=== PATIENT | male | born 1975 | race Caucasian/White ===

== ENCOUNTER 2025-04-07 16:14 | Emergency (ER) | payer MEDICARE, MEDICAID, SELFPAY ==
[2025-04-07 16:17] VITALS: BP 126/78; PULSE 71; RESP 16; TEMP 36.3; O2SAT 96; BMI 35.3
[2025-04-07] MEDS: Diphth,Pertus(ACell),Tet Adult 0.5 ML SYRINGE IM (16:32)
--- NOTE | 2025-04-07 16:44 | ED.GENADULT ---
HPI - General Adult General Chief complaint: Wound/Laceration Stated complaint: L hand injury with saw Time Seen by Provider: 04/07/25 16:26 Source: patient Mode of arrival: ambulatory Limitations: no limitations History of Present Illness ED Provider: Veto Carias [facility] narrative: 50 yold male presents to the ED to the ED for laceratio non back of hand caused by cutting using table saw. patient denies any other truma. Bleeding is controlled. Related Data Allergies Allergy/AdvReac Type Severity Reaction Status Date / Time No Known Allergies Allergy Verified 04/07/25 16:20 Review of Systems Review of Systems: left hand laceration Yes all other systems are reviewed and are negative PMFSH Social History Social History Advance Directives: No Advance Directives Information Provided: No Do you have a plan to hurt others: No Plan Physical Exam ED Vital Signs: Vital Signs - 24 hr 04/07/25 16:17 04/07/25 16:56 Temperature 97.4 F 97.7 F Pulse Rate 71 79 Respiratory Rate 16 18 Blood Pressure 126/78 133/80 Pulse Oximetry 96 99 Oxygen Delivery Method Room Air Room Air BMI result Body Mass Index 35.3 Const General: cooperative, healthy appearing, comfortable, no acute distress, well developed, alert, awake and Physically active Orientation/consciousness: patient oriented x3 HENMT Head: Yes normal to inspection, Yes No palpable skull fracture present, Yes normocephalic, Yes atraumatic and No abrasion Eyes General: appearance normal, both eyes and all related structures Neck Neck: Yes normal visual inspection, Yes full ROM, Yes no lymphadenopathy, Yes no meningeal signs, Yes trachea midline, Yes supple, No anterior neck swelling and No tender Chest Chest palpation & inspection: normal inspection of the chest and normal palpation of entire chest wall Resp Effort & Inspection: normal respiratory effort and able to speak in complete sentences Cardio Jugular venous distension: no JVD Heart sounds: S1 normal heart sound present and S2 normal heart sound present GI Inspection: Yes normal to inspection Palpation (GI): Soft to palpation, not firm, nontender, no guarding and not rigid General: Yes no CVA tenderness Back/Spine/Pelvis Back: no CVA tenderness and No back tenderness Skin General skin exam: no rashes or lesions noted and elasticity normal Neuro General: patient oriented x3, gait normal, tone normal, moves all extremities, Normal light touch and pain sensation, no meningeal signs, no focal motor deficits, CN's II-XI intact bilaterally and normal sensation to monofilament Extrem General: Yes normal to inspection, Yes full ROM and Yes capillary refill normal Hand/finger images:  1. positive for superficial laceration/abrasion. no active bleeding. negative for signs of nerve/tendon injury. vascular/motor/neuro exam is intact. Psych Appearance: grossly normal, well kempt and not disheveled Medications Administered Discontinued Medications Generic Name Dose Route Start Last Admin Trade Name Freq PRN Reason Stop Dose Admin Diphtheria/Tetanus/Acell Pertussis 0.5 ml 04/07/25 16:26 04/07/25 16:32 Diphth,Pertus(Acell),Tet Adult 0.5 Ml Syringe IM 04/07/25 16:27 0.5 ml .ONCE ONE Administration Medical Decision Making Medical Decision Making [facility] Narrative: [age] year male presents to ED for left dorsal hand laceration caused by a table saw while trying to cut wood. Patient has unknown last tetanus shot. On exam small superficial laceration of patient's dorsal aspect of hand that does not require stitches. Negative for signs of tendon or nerve injury. Patient's complete range of motion. Motor/neuro/vascular exam intact. Wound cleaned with sterile saline and Betadine iodine. Dermabond glue placed. Steri-Strips placed. Patient explained worrisome signs and informed return to the ED immediately Differential Diagnosis Differential Diagnoses: The differential diagnosis associated with the presentation includes (Laceration) Admission/Observation Consideration of admission/observation: Escalation of care including admission/observation considered Independent Historian Clinical information obtained from an independent historian. History obtained from or confirmed by: Other (Patient) Prescription Management I considered prescription management with: Pain Medication Discharge Plan Discharge Clinical Impression: Laceration, Abrasion Patient Disposition: Home, Self-Care Instructions: Laceration (ED), Skin Adhesive Care (ED) Additional Instructions: Recommend follow up with primary care provider. Wound should be kept clean and dry at least the 1st 24 hours. Return to the ED immediately for any swelling, redness, pus discharge, foul odor, fever, chills, red streaks, or any other concerning symptoms. Stand Alone Forms: Work/School Release Interventions: ED Discharge Assessment Last Done: 04/07/25 16:56 Discharge Date/Time: 04/07/25 16:58 Print Language: Taiwanese
--- OUTSIDE RECORDS SUMMARY | 2025-04-07 16:47 | XMS_ITS | Clinical Summary ---
Author Organization [employer] Address [address] [facility] [address] [place] [address] Care Team Providers Care International First Officer Name Role Phone Unavailable Primary Care Provider Unavailabl e Encounters Date Type Department Care Team Description 03/24/2025 Telephone [facility] [address] [place] [address] Ambika Fine MD from Last 3 Months Social History Tobacco Use Types Packs/Day Years Used Date Smoking Tobacco: Never Assessed Sex and Gender Information Value Date Recorded Sex Assigned at Male 03/24/2025 3:02 PM EDT Legal Sex Male 10:29 AM EDT Gender Identity Male 03/24/2025 3:02 PM EDT Sexual Orientation Not on file Plan of Treatment Health Maintenance Due Date Last Done Comments CT Colonography 1977 Colonoscopy 1977 Colorectal Cancer Screening 1977 Depression Screening 1977 FIT DNA/Cologuard 1977 FIT 1977 FOBT 1977 HIV Screening 1977 Lipid Panel 1977 SDOH Screening 1977 Sigmoidoscopy 1977 Disability Screening 1977 Alcohol/Substance Use Screening 1989 Tobacco Screening 1989 Family Planning (PISQ) 01/19/1992 Hepatitis C Screening 1995 DTaP/Tdap/Td Vaccines (1 - Tdap) 01/19/1996 Hepatitis B Vaccines (1 of 3 - 19+ 3-dose series) 01/19/1996 COVID-19 Vaccine ( - 2023-2 5 season) 2024 Influenza Vaccine (#1) 2025 Zoster Vaccines (1 of 2) 2027 RSV Patients and Pa tients Aged 60 years or older (1 - 1-dose 75+ series) 01/19/2052 HIB Vaccines Aged Out No longer eligi ble based on patient's age to complete this topic HPV Vaccines Aged Out No longer eligi ble based on patient's age to complete this topic Hepatitis A Vaccines Aged Out No long er eligible based on patient's age to complete this topic IPV Vaccines Aged Out No longer eligi ble based on patient's age to complete this topic Meningococcal B Vaccine Aged Out No l onger eligible based on patient's age to complete this topic Meningococcal Vaccine Aged Out No stuart abby eligible based on patient's age to complete this topic Pneumococcal Vaccine: Pediat rics (0 to 5 Years) and At-Risk Patients (6 to 49) Years Aged Out No longer eligible b ased on patient's age to complete this topic RSV under 20 months Aged Out No longe r eligible based on patient's age to complete this topic Rotavirus Vaccines Aged Out No longer eligible based on patient's age to complete this topic Insurance [facility] STANDARD
[2025-04-07 16:56] VITALS: BP 133/80; PULSE 79; RESP 18; TEMP 36.5; O2SAT 99
== END 2025-04-07 16:58 | disposition home or self-care (01) ==
PROVIDERS: Emergency Provider Emergency Medicine Emergency Medical Services
DX: S61.412A Laceration without foreign body of left hand, initial encounter (principal); W31.2XXA Contact with powered woodworking and forming machines, initial encounter; M79.642 Pain in left hand; Y93.89 Activity, other specified; Y92.9 Unspecified place or not applicable; Y99.9 Unspecified external cause status; Z23 Encounter for immunization
CPT/HCPCS: 12001; 90471; 90715; 99282; 99284

== ENCOUNTER 2025-06-30 08:05 | Outpatient (REF) | payer MEDICARE, MEDICAID, SELFPAY ==
--- OUTSIDE RECORDS SUMMARY | 2025-06-29 14:00 | XMS_ITS | Encounter Summary ---
Author Organization [employer] Address [address] [facility] [address] [place] [id number] Care Team Providers Care Epic Director Name Role Phone Name, Lexx ASHRAF Primary Care Provider [phone] Reason for Visit * Reason Comments New patient visit Encounter Details Date Type Department Care Team (Late st Contact Info) Description 06/29/2025 2:00 PM EDT Office Visit [facility] [address] [place] [address] Name, MD Lexx [address] [place] [address] Chronic midline low back pain with sciatica, sciatica laterality unspecified (Primary Dx); History of lumbosacral spine surgery; Depression with anxiety; Vaccination refused by patient; Healthcare maintenance; Screening for diabetes mellitus (DM); Screening for cholesterol level; Encounter for screening for HIV; Need for hepatitis C screening test Social History Tobacco Use Types Packs/Day Years Used Date Smoking Tobacco: Never Passive Smoke Exposure: Never Smokeless Tobacco: Never Tobacco Cessation:Counseling Given: Not Answered Alcohol Use Standard Drinks/Week Comments Never 0 (1 standard drink = 0.6 oz pur e alcohol) Depression Answer Date Recorded Patient Health Questionnaire-9 Score 8 06/29/2025 Patient Health Questionnaire-9 Score 8 06/29/2025 Last PHQ-9: Questionnaire Data Not on file 1 Housing Stability Answer Date Recorded What is your housing situation today? I do not have housing (Staying with others, in a hotel, in a [place], living outside on the street, on a beach, in a car, or in a park 06/29/[address] you li ve. Do you have problems with any of the following? None of the above 06/29/2025 Food Insecurity Answer Date Recorded Within the past 12 months, y ou worried that your food would run out before you got money to buy more: Sometimes True 2024 Within the past 12 months,th e food you bought just didn't last and you didn't have enough money to get more: Sometimes True 06/29/2025 Transportation Answer Date Recorded In the past 12 months, has l ack of transportation kept you from medical appts, meetings, work or from getting things needed for daily living? No 06/29/2025 Utilities Answer Date Recorded In the past 12 months, has t he electric, gas, oil or water company threatened to shut off services in your home? No 06/29/2025 Depression Answer Date Recorded Patient Health Questionnaire-2 Score 2 06/29/2025 Internet Access Answer Date Recorded Internet Access Q1 Yes 06/29/2025 Internet Access Q2 Not on file 06/29/2025 Sex and Gender Information Value Date Recorded Sex Assigned at Male 03/24/2025 3:02 PM EDT Legal Sex Male 10:29 AM EDT Gender Identity Male 03/24/2025 3:02 PM EDT Sexual Orientation Straight 06/29/2025 1: 44 PM EDT documented as of this encounter Last Filed Vital Signs Vital Sign Reading Time Taken Comments Blood Pressure 122/60 06/29/2025 1:56 PM EDT Pulse 68 06/29/2025 1:56 PM EDT Temperature 36.7 C (98 F) 06/29/2025 1:56 PM EDT Respiratory Rate 16 06/29/2025 1:56 PM EDT Oxygen Saturation 96% 06/29/2025 1:56 PM EDT Inhaled Oxygen Concentration - - Weight 113 kg (250 lb) 06/29/2025 1:56 PM EDT Height 176 cm (5' 9.29 ) 06/29/2025 1:56 PM EDT Body Mass Index 36.61 06/29/2025 1:56 PM EDT documented in this encounter Functional Status * Over the past 2 weeks, how often have you been bothered by any of the following problems? Question Answer Date of Assessment Author Patient Health Questionnaire -2 Score 2 06/29/2025 2:50 PM EDT Mu Greenberg MA * Little interest or pleasure in doing things Answer Date of Assessment Author Several days 06/29/2025 2:50 PM Daxa Roberson MA * Feeling down, depressed, or hopeless Answer Date of Assessment Author Several days 06/29/2025 2:50 PM KRISTINAT Daxa Greenberg MA * Trouble falling or staying asleep, or sleeping too much Answer Date of Assessment Author Nearly every day 06/29/2025 2:50 PM KRISTINAT Daxa Greenberg MA * Feeling tired or having little energy Answer Date of Assessment Author Several days 06/29/2025 2:50 PM KRISTINAT Daxa Greenberg MA * Poor appetite or overeating Answer Date of Assessment Author Several days 06/29/2025 2:50 PM KRISTINAT Daxa Greenberg MA * Feeling bad about yourself - or that you are a failure or have let yourself or your family down Answer Date of Assessment Author Not at all 06/29/2025 2:50 PM Daxa Roberson MA * Trouble concentrating on things, such as reading the newspaper or watching television Answer Date of Assessment Author Several days 06/29/2025 2:50 PM Daxa Roberson MA * Moving or speaking so slowly that other people could have noticed? Or the opposite - being so fidgety or restless that you have been moving around a lot more than usual. Answer Date of Assessment Author Not at all 06/29/2025 2:50 PM Daxa Roberson MA * Thoughts that you would be better off or hurting yourself in some way Answer Date of Assessment Author Not at all 06/29/2025 2:50 PM Daxa Roberson MA * Patient Health Questionnaire-9 Score Answer Date of Assessment Author 8 06/29/2025 2:50 PM Daxa Roberson MA * How difficult have these problems made it for you to do your work, take care of things at home, or get along with other people? Answer Date of Assessment Author Somewhat difficult 06/29/2025 2:50 PM EDDaxa Multani MA * Over the last 2 weeks, how often have you been bothered by any of the following problems? Question Answer Date of Assessment Author Feeling nervous, anxious, or on edge 1 06/29/2025 2:52 PM EDT Mu Greenberg MA Not being able to stop or control worrying 1 06/29/2025 2:52 PM EDT Mu Greenberg MA Worrying too much about different things 1 06/29/2025 2:52 PM EDT Mu Greenberg MA Trouble relaxing 1 06/29/2025 2:52 PM EDT Daxa [place] MA Being so restless that it is hard to sit still 0 06/29/2025 2:52 PM EDT Mu Greenberg MA Becoming easily annoyed or irritable 1 06/29/2025 2:52 PM EDT Mu Greenberg MA Feeling afraid as if somethi ng awful might happen 0 06/29/2025 2:52 PM EDT Mu Greenberg MA [place]-7 Total Score 5 06/29/2025 2:52 PM EDT Daxa Greenberg MA documented as of this encounter Progress Notes * Lexx Gipson MD - 06/29/2025 2:00 PM EDT Subjective Patient ID: Juan Romero is a 50 y.o. male who presents for New patient visit. Patient comes for the first time to the clinic. He moved from [place] back in February. He is living with friends. At the moment he has a place to stay. The patient is disabled because of chronic back pain. He explains to me that he gets Social Security disability payments. He had a lumbar spine surgery back in 2009. He continues to have daily low back pain that radiates to the legs on and off. His pain is not severe at the moment. In [place] he was also treated for depression and anxiety and for high cholesterol. He had a Tdap vaccination around January. He had negative colon cancer screening with stool testing earlier this year. The patient does not drink alcohol, does not smoke cigarettes, does not use any illicit drugs. He lives with his . He is monogamous. He has 1 daughter. The patient is not interested in talking to behavioral health today because he does not feel significantdepression or anxiety. He is mostly worried about getting an apartment of his own. He refuses flu and COVID vaccination today. Review of Systems Constitutional: Negative for chills, fatigue and fever. HENT: Negative for sore throat. Respiratory: Negative for cough, chest tightness and shortness of breath. Cardiovascular: Negative for chest pain, palpitations and leg swelling. Gastrointestinal: Negative for abdominal pain and blood in stool. Musculoskeletal: Negative for back pain. Psychiatric/Behavioral: Negative for self-injury, sleep disturbance and suicidal ideas. The patientis not nervous/anxious. Objective Vitals: 06/29/25 1356 BP: 122/60 BP Location: Left arm Patient Position: Sitting BP Cuff Size: Large adult Pulse: 68 Resp: 16 Temp: 98 ??F (36.7 ??C) TempSrc: Oral SpO2: 96% Weight: 250 lb (113 kg) Height: 5' 9.29 (1.76 m) Physical Exam Constitutional: Appearance: Normal appearance. Cardiovascular: Rate and Rhythm: Normal rate and regular rhythm. Heart sounds: No murmur heard. Pulmonary: Effort: Pulmonary effort is normal. No respiratory distress. Breath sounds: No wheezing, rhonchi or rales. Abdominal: Palpations: Abdomen is soft. Tenderness: There is no abdominal tenderness. Musculoskeletal: Lumbar back: Spasms present. No tenderness or bony tenderness. Right lower leg: No edema. Left lower leg: No edema. Comments: He has 2 small scars on the LS area from his previous surgery Neurological: General: No focal deficit present. Mental Status: He is alert. Motor: No weakness. Assessment/Plan Diagnoses and all orders for this visit: Chronic midline low back pain with sciatica, sciatica laterality unspecified Comments: We will check his labs. He will come tomorrow for fasting blood work. I will prescribe NSAIDs to use as needed once we verify his kidney function and CBC. History of lumbosacral spine surgery Comments: 2010, fusion and disectomy in [place] Depression with anxiety Comments: He denies significant depression or anxiety at the moment. He is mostly worried about getting an apartment of his own. He is not interested in talking to . Vaccination refused by patient Comments: He refused COVID and flu vaccination today. Healthcare maintenance Comments: Patient is up-to-date with his colon cancer screening and Tdap. He will try to get his previous records and bring to next visit. Screening for diabetes mellitus (DM) Comments: I recommended evaluation with fasting blood work listed below Orders: - CBC auto differential; Future - Comprehensive Metabolic Panel; Future Screening for cholesterol level Comments: I recommended evaluation with fasting blood work listed below Orders: - Lipid Panel, Standard; Future Encounter for screening for HIV Comments: Patient agreed with screening for HIV and hepatitis C Orders: - HIV-1/2 Antigen and Antibodies, Fourth Generation, with Reflexes; Future Need for hepatitis C screening test Comments: See above Orders: - Hepatitis C Viral RNA, Quantitative, Real-Time PCR; Future documented in this encounter Plan of Treatment Upcoming Encounters Date Type Department Care Team (Late st Contact Info) Description 08/31/2025 3:45 PM EST Office Visit [facility] [address] [place] [id number] Name, MD Lexx [address] [place] [phone] Scheduled Orders Name Type Priority Associated Diagnoses Orde r Schedule CBC auto differential Lab Routine Screening for diabetes mellitus (DM) Expected: 06/29/2025 (Approximate), Expires: 06/29/2026 Comprehensive Metabolic Panel Lab Routine Screening for diabetes mellitus (DM) Expected: 06/29/2025 (Approximate), Expires: 06/29/2026 Lipid Panel, Standard Lab Routine Screening for cholesterol level Expected: 06/29/2025 (Approximate), Expires: 06/29/2026 HIV-1/2 Antigen and Antibodies, Fourth Generation, with Reflexes Lab Routine Encounter for screening for HIV Expected: 06/29/2025 (Approximate), Expires: 06/29/2026 Hepatitis C Viral RNA, Quantitative, Real-Time PCR Lab Routine Need for hepatitis C screening test Expected: 06/29/2025 (Approximate), Expires: 06/29/2026 documented as of this encounter Visit Diagnoses Diagnosis Chronic midline low back pain with sciatica, sciatica laterality unspecified- Primary History of lumbosacral spine surgery Depression with anxiety Dysthymic disorder Vaccination refused by patient Healthcare maintenance Screening for diabetes mellitus (DM) Screening for diabetes mellitus Screening for cholesterol level Encounter for screening for HIV Need for hepatitis C screening test Special screening examination for other specified viral diseases documented in this encounter Additional Health Concerns Assessment Noted Time PHQ-9 Depression Total Score: 8 06/29/20 25 2:50 PM EDT documented as of this encounter Care Teams Epic Director Relationship Specialty Start Date End Date Name, MD Lexx [address] [place] [address] PCP - General Internal Medicine 06/29/25 documented as of this encounter
--- OUTSIDE RECORDS SUMMARY | 2025-06-30 08:12 | XMS_ITS | Encounter Summary ---
Author Organization [employer] Address [address] [facility] [address] [address] [place] [address] Care Team Providers Care Media Professional Name Role Phone Name, Lexx ASHRAF Primary Care Provider [phone] Encounter Details Date Type Department Care Team (Latest Contact Info) Description 06/29/2025 Travel Social History Tobacco Use Types Packs/Day Years Used Date Smoking Tobacco: Never Passive Smoke Exposure: Never Smokeless Tobacco: Never Alcohol Use Standard Drinks/Week Comments Never 0 [...] with others, in a hotel, in a usp, living outside on the street, on a [...] PM EDT documented as of this encounter Functional Status * Over the past 2 weeks, how often have you been bothered by any of the following problems? Question Answer Date of Assessment Author Patient Health Questionnaire -2 Score 2 06/29/2025 2:50 PM EDT Mu Greenberg MA * Little interest or pleasure in doing things Answer Date of Assessment Author Several days 06/29/2025 2:50 PM EDT Daxa Greenberg MA * Feeling down, depressed, or hopeless Answer Date of Assessment Author Several days 06/29/2025 2:50 PM EDT Daxa Greenberg MA * Trouble falling or staying asleep, or sleeping too much Answer Date of Assessment Author Nearly every day 06/29/2025 2:50 PM EDT Daxa Greenberg MA * Feeling tired or having little energy Answer Date of Assessment Author Several days 06/29/2025 2:50 PM EDT Daxa Greenberg MA * Poor appetite or overeating Answer Date of Assessment Author Several days 06/29/2025 2:50 PM KRISTINAT Daxa Greenberg MA * Feeling bad about yourself - or that you are a failure or have let yourself or your family down Answer Date of Assessment Author Not at all 06/29/2025 2:50 PM KRISTINAT Daxa Greenberg MA * Trouble concentrating on things, such as reading the newspaper or watching television Answer Date of Assessment Author Several days 06/29/2025 2:50 PM EDT Daxa Greenberg MA * Moving or speaking so slowly that other people could have noticed? Or the opposite - being so fidgety or restless that you have been moving around a lot more than usual. Answer Date of Assessment Author Not at all 06/29/2025 2:50 PM EDT Daxa Greenberg MA * Thoughts that you would be better off or hurting yourself in some way Answer Date of Assessment Author Not at all 06/29/2025 2:50 PM EDT Daxa Greenberg MA * Patient Health Questionnaire-9 Score Answer Date of Assessment Author 8 06/29/2025 2:50 PM EDT Daxa Greenberg MA * How difficult have these problems made it for you to do your work, take care of things at home, or get along with other people? Answer Date of Assessment Author Somewhat difficult 06/29/2025 2:50 PM EDT Daxa Izaguirre MA * Over the last 2 weeks, [...] Greenberg MA documented as of this encounter Plan of Treatment Upcoming Encounters Date Type Department Care Team (Late st Contact Info) Description 08/31/2025 3:45 PM EST Office Visit [facility] [address] [place] [address] Name, MD Lexx [address] [place] [address] documented as of this encounter Visit Diagnoses Not on filedocumented in this encounter Additional Health Concerns Assessment Noted Time PHQ-9 Depression Total Score: 8 06/29/20 2:50 PM EDT documented as of this encounter Care Teams Media Professional Relationship Specialty Start Date End Date Name, MD Lexx [address] [place] [address] PCP - General Internal Medicine 06/29/25 documented as of this encounter
--- OUTSIDE RECORDS SUMMARY | 2025-06-30 08:12 | XMS_ITS | Clinical Summary ---
Author Organization [employer] Address [address] [place] [address] Care Team Providers Care Ceramic Chemist Name Role Phone Lexx Gipson MD Primary Care Provider [phone] Allergies No known active allergies Active Problems Problem Noted Date Diagnosed Date Chronic midline low back pain with sciatica 06/17 Depression 06/29/2025 History of lumbosacral spine surgery 06/29/2025 Overview (06/29/2025): 2009, fusion and disectomy in [place] Encounters Date Type Department Care Team Description 06/29/2025 2:00 PM EDT Office Visit [facility] MED[facility] [address] [place] [address] Lexx Gipson MD Chronic midline low back pain with sciatica, sciatica laterality unspecified (Primary Dx); History of lumbosacral spine surgery; Depression with anxiety; Vaccination refused by patient; Healthcare maintenance; Screening for diabetes mellitus (DM); Screening for cholesterol level; Encounter for screening for HIV; Need for hepatitis C screening test 06/29/2025 Travel 06/22/2025 Patient Outreach [facility] [address] [place] [address] Lexx Gipson MD Pre-visit Planning ([facility] unable to reach, disconnected) from Last 3 Months Family History Medical History Relation Name Comments No Known Problems Brother 1 No Known Problems Brother 2 No Known Problems Brother 3 Asthma Daughter Diabetes Father Hypertension Father Kidney failure Father Diabetes Mother Hypertension Mother Relation Name Status Comments Brother 1 Alive Brother 2 Alive Brother 3 Alive Daughter Alive Father Mother Alive Social History Tobacco Use Types Packs/Day Years [...] with others, in a hotel, in a senior care, living outside on the street, on a [...] Orientation Straight 06/29/2025 1: 44 PM EDT Last Filed Vital Signs Vital Sign Reading [...] Mass Index 36.61 06/29/2025 1:56 PM EDT Plan of Treatment Upcoming Encounters Date Type Department Care Team (Late st Contact Info) Description 08/31/2025 3:45 PM EST Office Visit [facility] MEDICINE [address] [place] [address] Name, MD Lexx [address] [place] [address] Health Maintenance Due Date Last Done Comments CT Colonography 1977 Colonoscopy 1977 Colorectal Cancer Screening 1977 FIT DNA/Cologuard 1977 FIT 1977 FOBT 1977 HIV Screening 1977 Lipid Panel 1977 Sigmoidoscopy 1977 Family Planning (PISQ) 01/19/1992 Hepatitis C Screening 1995 DTaP/Tdap/Td Vaccines (1 - Tdap) 01/19/1996 Hepatitis B Vaccines (1 of 3 - 19+ 3-dose series) 01/19/1996 COVID-19 Vaccine ( - 2023-2 5 season) 2025 Influenza Vaccine (#1) 2025 Alcohol/Substance Use Screening 06/29/2026 06/29/2025 Depression Screening 06/29/2026 06/29/2025, 06/29/2025 Disability Screening 06/29/2026 06/29/2025 SDOH Screening 06/29/2026 06/29/2025 Tobacco Screening 06/29/2026 06/29/2025 Zoster Vaccines (1 of 2) 2027 RSV Patients and Patients Aged 60 years or older (1 - [...] age to complete this topic Pneumococcal Vaccine: Pediatrics (0 to 5 Years) and At-Risk Patients (6 to 49) Years Aged Out No longer eligible b ased on patient's age to complete this topic RSV under 20 months Aged Out No longe r eligible based on patient's age to complete this topic Rotavirus Vaccines Aged Out No longer eligible based on patient's age to complete this topic Insurance [facility] [address] STANDARD MEDIC[place] [phone] Care Teams Ceramic Chemist Relationship Specialty Start Date End Date Name, MD Lexx [address] [place] [id number] PCP - General Internal Medicine 06/29/25
[2025-06-30 11:41] LABS: MANUAL DIFF FLAG NO
[2025-06-30 12:04] LABS: Hematocrit 40.5 % (42.0-52.0); Hemoglobin 13.2 g/dl (14.0-18.0); Imm Gran Abs Auto 0.03 X10*3/uL (0.00-0.03); Imm Gran Pct Auto 0.4 % (0.0-0.4); Lymphocytes Absolute Auto 2.1 X10*3/uL (1.2-4.9); Mean Corpuscular HGB Conc 32.6 g/dl (31.0-36.0); Mean Corpuscular Hemoglobin 29.5 pg (27.0-33.0); Mean Corpuscular Volume 90.6 fL (80.0-98.0); NRBC Abs Auto 0.000 X10*3/uL (0.0-0.012); NRBC Pct Auto 0.0 /100WBC (0.0-0.2); Platelet Count 260 X10*3/uL (160-400); Red Blood Count 4.47 X10*6/uL (4.60-5.80); White Blood Count 8.2 X10*3/uL (4.8-10.8)
[2025-06-30 12:27] LABS: Alanine Aminotransferase 28 U/L (0-40); Albumin Level 4.5 g/dL (3.5-5.0); Alkaline Phosphatase 75 U/L (39-117); Anion Gap 11 (12-20); Aspartate Amino Transferase 26 U/L (5-37); Blood Urea Nitrogen 17 mg/dL (9-16); Calcium 9.4 mg/dL (8.4-10.2); Carbon Dioxide 29 mmol/L (22-29); Chloride 106 mmol/L (96-108); Cholesterol 249 mg/dL (<200); Estimated Glomerular Filt Rate > 60; HDL Cholesterol 34 mg/dL (>40); Potassium 3.8 mmol/L (3.3-5.1); Sodium 142 mmol/L (135-145); Total Protein 7.2 g/dL (6.5-8.0); Triglycerides 238 mg/dL (<150)
[2025-07-01 03:47] LABS: HIV Num 1 0.06 S/CO (0.00-0.99)
[2025-07-02 17:27] LABS: HCV Log PCR <1.18 NOT DETECTED Log IU/mL (NOT DETECTED); HepC Viral Load <15 NOT DETECTED IU/mL (NOT DETECTED)
== END 2025-06-30 08:06 | disposition home or self-care (01) ==
LOC: HO.HHCL 08:05
PROVIDERS: PCP Internal Medicine Geriatric Medicine; Visit Provider Internal Medicine Geriatric Medicine
DX: Z13.220 Encounter for screening for lipoid disorders (principal); Z13.1 Encounter for screening for diabetes mellitus; Z11.4 Encounter for screening for human immunodeficiency virus [HIV]; Z11.59 Encounter for screening for other viral diseases; Z13.6 Encounter for screening for cardiovascular disorders
CPT/HCPCS: 36415; 80053; 80061; 85025; 87389; 87522